=== PATIENT | female | born 1975 | race Caucasian/White ===

== ENCOUNTER 2018-03-07 23:47 | Emergency (ER) | payer BC, OTHER ==
[~2018-03-07] VITALS: Ht 175.3 cm; Wt 88.7 kg
[2018-03-07 23:50] VITALS: TEMP 36.6; Ht 175.3 cm; Wt 88.7 kg
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
[2018-03-08] MEDS ORDERED: AMOX875T PO (00:19)
[2018-03-08 00:31] VITALS: BP 131/106; PULSE 79; O2SAT 98
== END 2018-03-08 00:32 | disposition home or self-care (01) ==
LOC: C.EDB 23:48 → C.EDA 03-08 00:32
DX: S01.312A Laceration without foreign body of left ear, initial encounter (principal); W20.8XXA Other cause of strike by thrown, projected or falling object, initial encounter; R03.0 Elevated blood-pressure reading, without diagnosis of hypertension